=== PATIENT | male | born 1995 | race Caucasian/White ===

== ENCOUNTER 2019-01-05 09:10 | Emergency (ER) | payer SELFPAY ==
[~2019-01-05] VITALS: Ht 170.2 cm; Wt 52.0 kg
[2019-01-05 09:18] VITALS: BP 126/67; PULSE 108; RESP 18; Ht 170.2 cm; Wt 52.0 kg
[2019-01-05] MEDS ORDERED: KETOROLAC 60 MG INJ IM STA (10:14)
[2019-01-05] MEDS ORDERED: IBUP-1542 PO (10:18)
[2019-01-05] MEDS ORDERED: AMOX1TAB10 PO (10:19)
--- NOTE | 2019-01-05 10:26 | ERD ---
ER Documentation Chief Complaint Chief Complaint headache, bilaterial ear ache since tuesday HPI 23-year-old male presents with complaint of headache and bilateral ear pain since Tuesday. States he feels like there is pressure in his head. In addition he states that he had 1 day of fever during this time. Denies sudden onset, worse headache of life, fever, neck stiffness, rash, headache getting worse with change in position, headache initiated by exertion, DUDLEY worse in the morning, DUDLEY waking up patient at night, new neurological deficits, numbness, weakness, vision problems, tenderness to palpation over temporal area, history of trauma, or possibility of CO2 poisoning. Denies past medical history. Denies allergies. Denies surgeries. Renzo alcohol, tobacco, drug use. Up to date on vaccines. ROS All systems reviewed and are negative except as per history of present illness. Medications Home Meds Active Scripts Amoxicillin/Potassium Clav (Amox-Clav 875-125 mg Tablet) 875-125 mg Tab, 1 TAB PO BID for sinusitis for 7 Days, #14 TAB Prov:ROBERT NGUYEN 01/05/19 Ibuprofen* (Motrin*) 600 Mg Tab, 600 MG PO Q6, #30 TAB Prov:ROBERT NGUYEN 01/05/19 Allergies Allergies: Coded Allergies: No Known Allergy (Unverified , 01/05/19) PMhx/Soc Medical and Surgical Hx: pt denies Medical Hx, pt denies Surgical Hx Hx Alcohol Use: No Hx Substance Use: No Hx Tobacco Use: No Smoking Status: Never smoker FmHx Family History: No diabetes, No coronary disease, No other Physical Exam Vitals Vital Signs Date Temp Pulse Resp B/P (MAP) Pulse Ox O2 O2 Flow FiO2 Time Delivery Rate 01/05/19 98.4 108 18 126/67 97 09:18 (86) Physical Exam Const: No acute distress Head: Atraumatic Eyes: Normal Conjunctiva. PERRLA. EOMs intact. ENT: Normal External Ears, Nose and Mouth. TMs pearly cole and nonbulging bilaterally. Mastoids nontender or edematous. Neck: Full range of motion. No meningismus. Resp: Clear to auscultation bilaterally Cardio: Regular rate and rhythm, no murmurs Abd: Soft, non tender, non distended. Normal bowel sounds Skin: No petechiae or rashes Back: No midline or flank tenderness Ext: No cyanosis, or edema Neur: Awake and alert Psych: Normal Mood and Affect Neuro: M/S: Alert and oriented Face: EOMI, face and pharynx with normal sensation and function Motor: Normal strength throughout Sensation: Normal sensation throughout Speech: Normal Cerebel: Normal coordination Normal gait Normal finger to nose DTR: 2+ and symmetric upper/lower extremities Results 24 hrs Current Medications Medications Dose Sig/Chelsea Start Time Status Last (Trade) Ordered Route PRN Stop Time Admin Dose Reason Admin Ketorolac 60 mg ONCE STAT 01/05/19 DC Tromethamine IM 10:14 (Toradol) 01/05/19 10:15 Procedures/MDM DM: Patient's neuro exam was normal. Edition patient denied any sudden onset of headache. Patient's has history of headaches and also is complaining of a feeling of pressure in his head as well as bilateral ear pain so patient will be treated for possible sinusitis with Augmentin. Patient given ibuprofen for pain. I have low suspicion for intracranial hemorrhage, elevated intracranial pressure, intracranial mass, aneurysm, meningitis, malignant hypertension, giant cell arteritis, carotid dissection, intracranial abscess, cerebral venous thrombosis, CO2 poisoning, or other emergent causes of headache based on patients history and exam. Patient discharged with strict ER precautions. Patient advised to follow up with PMD. All questions answered at discharge. Departure Diagnosis: Primary Impression: Headache Headache type: unspecified Headache chronicity pattern: acute headache Intractability: not intractable Qualified Codes: R51 - Headache Additional Impression: Sinusitis Sinusitis location: unspecified location Chronicity: acute Recurrence: not specified as recurrent Qualified Codes: J01.90 - Acute sinusitis, unspecified Condition: Stable Patient Instructions: Self-Care for Headaches, Sinusitis, Abx Tx Referrals: [facility] YOU HAVE RECEIVED A MEDICAL SCREENING EXAM AND THE RESULTS INDICATE THAT YOU DO NOT HAVE A CONDITION THAT REQUIRES URGENT TREATMENT IN THE EMERGENCY DEPARTMENT. FURTHER EVALUATION AND TREATMENT OF YOUR CONDITION CAN WAIT UNTIL YOU ARE SEEN IN YOUR DOCTORS OFFICE WITHIN THE NEXT 1-2 DAYS. IT IS YOUR RESPONSIBILITY TO MAKE AN APPOINTMENT FOR FOLOW-UP CARE. IF YOU HAVE A PRIMARY DOCTOR --you should call your primary doctor and schedule an appointment IF YOU DO NOT HAVE A PRIMARY DOCTOR YOU CAN CALL OUR PHYSICIAN REFERRAL HOTLINE AT IF YOU CAN NOT AFFORD TO SEE A PHYSICIAN YOU CAN CHOSE FROM THE FOLLOWING [facility] [address] [facility] [address] [facility]. [facility] [address] [facility] [address] [facility] [phone] [address] [facility]. [facility]. [address] Additional Instructions: FOLLOW UP WITH YOUR PRIMARY CARE PHYSICIAN TOMORROW.Return to this facility if you are not improving as expected. ROBERT NGUYEN January 05, 2019 10:26
== END 2019-01-05 10:27 | disposition home or self-care (01) ==
LOC: FTE 09:10
DX: J01.90 Acute sinusitis, unspecified (principal)
CPT/HCPCS: 96372; 99284; J1885